=== PATIENT | female | born 1965 | race African-American/Black ===

== ENCOUNTER 2021-03-31 16:03 | Outpatient (RCR) | payer OTHER | END 2021-04-02 | LOC: PT 16:03 | PROVIDERS: ATTEND Emergency Medicine | DX: M17.0 Bilateral primary osteoarthritis of knee (principal) ==

== ENCOUNTER 2021-04-27 07:00 | Outpatient (RCR) | payer OTHER | END 2021-05-03 | LOC: PT 07:00 | PROVIDERS: ATTEND Emergency Medicine | DX: M17.0 Bilateral primary osteoarthritis of knee (principal) ==

== ENCOUNTER 2021-05-25 07:00 | Outpatient (RCR) | payer OTHER | END 2021-06-02 | LOC: PT 07:00 | PROVIDERS: ATTEND Emergency Medicine | DX: M17.0 Bilateral primary osteoarthritis of knee (principal) ==

== ENCOUNTER 2022-11-23 17:24 | Emergency (ER) | payer OTHER ==
[~2022-11-23] VITALS: Ht 165.1 cm; Wt 77.6 kg
[2022-11-23 17:43] VITALS: O2SAT 98
[2022-11-23] MEDS ORDERED: CLEOCIN HCL300 MG PO (17:53)
== END 2022-11-23 17:58 | disposition home or self-care (01) ==
LOC: FSED 17:35
DX: S90.424A Blister (nonthermal), right lesser toe(s), initial encounter (principal); L03.031 Cellulitis of right toe; F17.210 Nicotine dependence, cigarettes, uncomplicated
CPT/HCPCS: 36415; 82948; 99282

== ENCOUNTER 2022-11-25 09:46 | Emergency (ER) | payer OTHER ==
[~2022-11-25] VITALS: Ht 165.1 cm; Wt 77.6 kg
[~2022-11-25 09:46] MED LIST: CLEOCIN HCL300 MG PO
[2022-11-25 11:36] VITALS: O2SAT 100
== END 2022-11-25 11:37 | disposition home or self-care (01) ==
LOC: ER 10:19
DX: S90.424A Blister (nonthermal), right lesser toe(s), initial encounter (principal)
CPT/HCPCS: 99282